=== PATIENT | male | born 1985 | race African-American/Black ===

== ENCOUNTER 2018-03-27 17:25 | Emergency (ER) | payer SELFPAY ==
[~2018-03-27] VITALS: Ht 177.8 cm; Wt 74.8 kg
== END 2018-03-27 18:33 | disposition left against medical advice (07) ==
LOC: ER 17:33
DX: F29 Unspecified psychosis not due to a substance or known physiological condition (principal); Z53.21 Procedure and treatment not carried out due to patient leaving prior to being seen by health care provider

== ENCOUNTER 2018-04-03 14:36 | Emergency (ER) | payer OTHER ==
[~2018-04-03] VITALS: Ht 185.4 cm; Wt 70.3 kg
[2018-04-03 14:49] VITALS: BP 124/91
[2018-04-03] MEDS ORDERED: SODIUM CHLORIDE 0.9% 1,000 ML IV ONE (15:00)
== END 2018-04-03 16:34 | disposition home or self-care (01) ==
LOC: ER 14:36 → EDBD 14:36 → EDUNIT# 14:36 → ER 16:29
DX: F31.9 Bipolar disorder, unspecified (principal); F17.210 Nicotine dependence, cigarettes, uncomplicated; F15.10 Other stimulant abuse, uncomplicated
CPT/HCPCS: 94761; 99284; J7030

== ENCOUNTER 2018-07-02 23:06 | Emergency (ER) | payer OTHER ==
[~2018-07-02] VITALS: Ht 185.4 cm; Wt 72.6 kg
[2018-07-03] MEDS ORDERED: diphenhdrAMINE HCL 50 MG/1 ML VL IM ONE (01:45)
[2018-07-03] MEDS ORDERED: HALOPERIDOL LACTATE 5 MG/ML INJ VIAL IM ONE (01:45)
[2018-07-03] MEDS ORDERED: LORazepam 2MG/ML-1ML VIAL IM ONE (01:45)
[2018-07-03 02:18] LABS: Basophils # (auto) 0.1 uL; Eosinophils # (auto) 0.2 uL; Lymphocytes # (auto) 2.6 uL; Mean Corpuscular Hgb Conc. 31.9 g/dL (32.0-36.0); Neutrophils # (auto) 3.5 uL; Red Cell Distribution Width 14.3 % (11.8-14.3)
[2018-07-03 02:20] LABS: Basophils % (auto) 0.7 % (0.0-2.0); Eosinophils % (auto) 3.3 % (0.0-7.0); Hematocrit 37.8 % (41.0-53.0); Lymphocytes % (auto) 36.8 % (10.0-50.0); Mean Corpuscular Hemoglobin 25.7 pg (28.0-32.0); Mean Corpuscular Volume 80.6 fL (80.0-100.0); Monocytes # (auto) 0.7 uL; Monocytes % (auto) 9.3 % (0.0-12.0); Neutrophils % (auto) 49.9 % (37.0-80.0); Nucleated Red Blood Cells % 0.1 %; Platelet Count (auto) 232 10^3/uL (140-450); Red Blood Cells 4.69 10^6/uL (4.5-5.90)
[2018-07-03 02:37] LABS: Albumin 3.3 g/dL (3.4-5.0); Anion Gap 7 (5-15); BUN/Creatinine Ratio 20.7; Blood Alcohol < 3.0 mg/dL (0-5); Blood Urea Nitrogen 12 mg/dL (7-18); Calcium 8.2 mg/dL (8.5-10.1); Carbon Dioxide 25 mmol/L (21-32); Chloride 111 mmol/L (98-107); GFR African American 209 mL/min; GFR Non-African American 173 mL/min; Glucose 83 mg/dL (74-106); Potassium 3.8 mmol/L (3.5-5.1); Salicylate < 1.7 mg/dL (2.8-20.0); Sodium 143 mmol/L (136-145)
[2018-07-03 02:46] LABS: Alanine Aminotransferase 26 U/L (16-61); Alkaline Phosphatase 83 U/L (45-117); Aspartate Aminotransferase 21 U/L (15-37); Bilirubin, Total 0.2 mg/dL (0.2-1.0); Total Protein 6.4 g/dL (6.4-8.2)
[2018-07-03 02:58] LABS: Acetaminophen < 2.0 ug/mL (10-30)
[2018-07-03 09:08] VITALS: BP 94/60
== END 2018-07-03 10:39 | disposition home or self-care (01) ==
LOC: EDUNIT# 23:06 → ER 23:18
DX: F20.9 Schizophrenia, unspecified (principal); F15.10 Other stimulant abuse, uncomplicated; F17.210 Nicotine dependence, cigarettes, uncomplicated; Z91.19 Patient's noncompliance with other medical treatment and regimen
CPT/HCPCS: 36415; 80053; 80320; 80329; 85025; 96372; 99284; J1200; J1630; J2060

== ENCOUNTER 2018-08-10 03:35 | Emergency (ER) | payer OTHER ==
[~2018-08-10] VITALS: Ht 182.9 cm; Wt 72.6 kg
[2018-08-10 04:31] LABS: Urine Bacteria NONE SEEN /hpf (None Seen); Urine Blood Negative /uL (Negative); Urine Mucus FEW (None Seen); Urine Specific Gravity 1.039 (1.001-1.035); Urine WBC 1 /hpf (0 - 3)
[2018-08-10 04:33] LABS: Basophils # (auto) 0 uL; Basophils % (auto) 0.5 % (0.0-2.0); Eosinophils # (auto) 0.1 uL; Eosinophils % (auto) 1.1 % (0.0-7.0); Hematocrit 42.3 % (41.0-53.0); Hemoglobin 14.1 g/dL (13.5-17.5); Lymphocytes % (auto) 25.4 % (10.0-50.0); Mean Corpuscular Hgb Conc. 33.4 g/dL (32.0-36.0); Mean Corpuscular Volume 80.6 fL (80.0-100.0); Monocytes # (auto) 0.6 uL; Monocytes % (auto) 8.1 % (0.0-12.0); Neutrophils # (auto) 5.1 uL; Neutrophils % (auto) 64.9 % (37.0-80.0); Nucleated Red Blood Cells % 0.1 %; Platelet Count (auto) 290 10^3/uL (140-450); Red Blood Cells 5.25 10^6/uL (4.5-5.90); Red Cell Distribution Width 15.1 % (11.8-14.3); White Blood Cell 7.8 10^3/uL (4.4-10.8)
[2018-08-10 04:41] LABS: Amphetamine Screen, Urine POSITIVE (NEGATIVE); Barbiturate Scree,Urine NEGATIVE (NEGATIVE); Benzodiazephine Screen, Urine NEGATIVE (NEGATIVE); Cannabinoid Screen, Urine NEGATIVE (NEGATIVE); Cocaine Screen, Urine NEGATIVE (NEGATIVE); Opiate Scree,Urine NEGATIVE (NEGATIVE); Phencyclidine Screen, Urine NEGATIVE (NEGATIVE)
[2018-08-10 04:46] LABS: Albumin 4.2 g/dL (3.4-5.0); BUN/Creatinine Ratio 22.7; Bilirubin, Total 0.4 mg/dL (0.2-1.0); Potassium 3.7 mmol/L (3.5-5.1); Total Protein 8.3 g/dL (6.4-8.2)
[2018-08-10 06:45] VITALS: BP 126/81
== END 2018-08-10 06:28 | disposition home or self-care (01) ==
LOC: EDBD 03:35 → ER 03:36
DX: F41.9 Anxiety disorder, unspecified (principal); F15.10 Other stimulant abuse, uncomplicated; F20.9 Schizophrenia, unspecified; F17.210 Nicotine dependence, cigarettes, uncomplicated; Z59.0 Homelessness
CPT/HCPCS: 36415; 80053; 80307; 81001; 82150; 83690; 85025